=== PATIENT | female | born 1965 | race Caucasian/White ===

== ENCOUNTER 2016-08-30 08:36 | Inpatient (IN) | payer OTHER ==
--- NOTE | 2016-08-27 09:51 | HP ---
Admitting History and Physical - Primary Care Physician PCP: Omkar Hall - Admission Chief Complaint: right breast cancer History of Present Illness: Patient is a 50 yo female noted to have calcifications in the right UOQ on screening mammogram. Patient underwent a stereo on 07/10/2016 which was positive for DCIS ER and MS positive. An MRI was c/w known cancer (1.3 cm span Ca). Patient to undergo bilateral mastectomy with right snbx, possible andx and lymphoscintogram with reconstruction. History Source: Patient Limitations to Obtaining History: No Limitations - Past Surgical History Past Surgical History: Yes: Appendectomy (1979), Tubal Ligation (2002) Additional Past Surgical History: deviated septal repair 2013 - Smoking History Smoking history: Former smoker Home Medications - Allergies Allergies/Adverse Reactions: Allergies Allergy/AdvReac Type Severity Reaction Status Date / Time No Known Allergies Allergy Verified 08/27/16 09:53 - Home Medications Home Medications: Ambulatory Orders NK [No Known Home Medication] 08/27/16 Family Disease History - Family Disease History Family Disease History: CA: Sister (breast cancer at 43) Other Family History: maternal aunt x 4 (breast cancer with age range late 40s to 70s). maternal first cousin- breast cancer at 49. maternal GM-endometrial cancer at 75. paternal aunt-breast cancer 60s. father-prostate cancer. paternal GM-gastric cancer Review of Systems - Review of Systems Constitutional: reports: No Symptoms Eyes: reports: Blurred Vision Physical Examination Constitutional: Yes: Well Nourished Cardiovascular: Yes: WNL Respiratory: Yes: WNL Breast(s): Yes: Other (symmetrical, B cup breast diffusely nodular and dense without suspicious masses or adenopathy noted.) Problem List - Problems (1) Ductal carcinoma in situ (DCIS) of right breast Code(s): D05.11 - INTRADUCTAL CARCINOMA IN SITU OF RIGHT BREAST (2) Family history of breast cancer Code(s): Z80.3 - FAMILY HISTORY OF MALIGNANT NEOPLASM OF BREAST Assessment/Plan bilateral mastectomy, snbx, possible andx with lymphoscintogram and reconstruction
[2016-08-29 12:01] VITALS: BMI 21.2
[2016-08-30] MEDS ORDERED: ONDANSETRON 4 MG/2 ML VIAL IVPB PRN (10:31)
[2016-08-30] MEDS ORDERED: ACETAMINOPHEN 325 MG TABLET (FP) PO PRN (10:31)
[2016-08-30] MEDS ORDERED: ZOLPIDEM TARTRATE 5 MG TABLET PO PRN (10:31)
[2016-08-30] MEDS ORDERED: DEXAMETHASONE SOD PHOSPHATE/PF 10 MG/ML SDV ONE (10:39)
[2016-08-30] MEDS ORDERED: BUPIVACAINE HCL/PF 2.5 MG/ML - 30 ML VIAL IJ ONE (10:40)
[2016-08-30] MEDS ORDERED: MIDAZOLAM HCL 2 MG/2 ML SINGLE DOSE VIAL ONE (10:40)
[2016-08-30] MEDS ORDERED: DEXTROSE 5%-0.45% SALINE 1,000 ML IV SCH (10:45)
[2016-08-30] MEDS ORDERED: PROPOFOL 20 ML ONE (11:25)
[2016-08-30] MEDS ORDERED: LIDOCAINE HCL/PF 2% SDV 5ML VIAL ONE (11:26)
[2016-08-30] MEDS ORDERED: ROCURONIUM BROMIDE 50 MG/5 ML VIAL ONE ×2 (11:26→13:15)
[2016-08-30] MEDS ORDERED: DEXAMETHASONE SOD PHOSPHATE 4 MG/1 ML VIAL ONE (11:40)
[2016-08-30] MEDS ORDERED: ceFAZolin SODIUM 1 GM VIAL ONE ×2 (11:40→16:25)
[2016-08-30] MEDS ORDERED: ONDANSETRON 4 MG/2 ML VIAL ONE (11:40)
[2016-08-30] MEDS ORDERED: HYDROmorphone HCL/PF 1 MG/ML VIAL (FOR PYXIS CHARGING ONLY) ONE (14:25)
[2016-08-30] MEDS ORDERED: GLYCOPYRROLATE 0.2 MG/1 ML VIAL ONE (14:30)
[2016-08-30] MEDS ORDERED: NEOSTIGMINE METHYLSULFATE 0.5 MG/ML - 10 ML MDV ONE (14:31)
[2016-08-30] MEDS ORDERED: CEFAZOLIN 1 GM/D5W 50 ML IVPB SCH (15:00)
[2016-08-30] MEDS ORDERED: diazePAM 5 MG TABLET PO PRN (15:30)
[2016-08-30] MEDS ORDERED: ACETAMINOPHEN 1000 MG/100 ML VIAL (NON FORMULARY) IVPB ONE (15:30)
[2016-08-30] MEDS ORDERED: traMADol HCL 50 MG TABLET PO PRN (15:30)
[2016-08-30] MEDS ORDERED: LACTATED RINGERS SOLUTION 1,000 ML IV SCH (15:30)
[2016-08-30] MEDS ORDERED: PROMETHAZINE HCL 25 MG/1 ML VIAL IVPUSH PRN (15:30)
[2016-08-30] MEDS: HYDROmorphone HCL CARPU-JECT 1 MG/1 ML DISP.SYRIN IVPUSH PRN ×2 (15:35→15:55)
[2016-08-30] MEDS ORDERED: diazePAM 2 MG TABLET PO PRN (15:46)
[2016-08-30] MEDS ORDERED: ACETAMINOPHEN INJECTION 100 ML IVPB ONE (15:49)
[2016-08-30] MEDS: traMADol HCL 50 MG TABLET PO SCH ×2 (18:04→23:46)
[2016-08-30] MEDS: diazePAM 2 MG TABLET PO SCH ×2 (18:04→21:22)
[2016-08-30] MEDS: oxyCODONE HCL 5 MG TABLET PO PRN (19:26)
--- NOTE | 2016-08-30 19:27 | OP ---
DATE OF OPERATION: 08/30/2016 SURGEON: Brayan Tobias M.D. INFECTION PREVENTION PRACTITIONER SURGEON: Sabrina German PREOPERATIVE DIAGNOSIS: Bilateral acquired chest wall deformity status post bilateral mastectomy. This is a combined dictation with Brayan Hall M.D., and Jasmyne Nguyen M.D. POSTOPERATIVE DIAGNOSIS: Bilateral acquired chest wall deformity status post bilateral mastectomy. PROCEDURE: Bilateral implant and Alloderm reconstruction. INDICATION: The patient had mastectomies with tissue removed, 192 g of tissue from the right breast, and 225 g of tissue from the left breast. She had SPY intraoperative angiograms with good blood flow. She had Alloderm contour perforated medium sheaths placed bilaterally, and she had implants of Natrelle Inspira Cohesive breast implants style SCF 560 mL volume. She tolerated this procedure well. OPERATIVE PROCEDURE IN DETAIL: The patient was taken to the operating room. After induction of general anesthesia in the supine position, both arms were extended and padded. Venodyne boots were placed. The entire chest wall was painted with ChloraPrep solution over its entire extent, and sterile drapes were placed in the usual fashion. The markings, which had been made in the standing position preoperatively, were re-outlined with the patient's knowledge. Time-out procedure was performed. Attention was turned by Dr. Hall to the mastectomies. Bilateral inframammary incisions were made and Dr. Hall performed mastectomies. This will be dictated under separate cover. Upon completion of the mastectomies, the wounds were copiously irrigated and attention was turned to the right breast. A subpectoral dissection was begun on the right breast, superiorly from the second rib, medially to the sternal fibers, and down to the inframammary fold, elevating the pectoralis major muscle from its insertion. At this point, an 8.0 x 16.0 sheet of AlloDerm was brought into the field and sutured superiorly along the pectoralis major muscle after rehydration. This was carried along the lateral mammary fold and down the side of the breast reconstruction. At this point, a Natrelle Inspira Cohesive breast implant was chosen. The left breast tissue removed was 225 gm, and the right breast approximately 192 gm. This implant was placed and then sutured with 3-0 Vicryl suture continued along the inframammary fold, completely covering the implant itself. The exact same procedure was carried out symmetrically on the opposite breast, also placing a Natrelle Inspira Cohesive breast implant in the same subpectoral pocket. Good symmetry was seen in the sitting position. After the implants were in place, the patient was injected with 10 mL of Isocyanide green dye and the Spy imaging system was brought into the field. The skin flowed to the right and left breasts and the nipple areolar complex, and the entire skin flaps were evaluated and seen to be viable with good blood flow. Two Demarco-Copeland drains were brought out through separate stab wounds laterally. The Smart Infuser pump catheter was inserted medially and into the subpectoral position. Both wounds were closed symmetrically using 3-0 PDS suture on the deep tissue, 3-0 in a deep dermal fashion, and 4-0 in a subcuticular fashion. Both wounds were dressed sterilely with Mastisol and Steri-Strips with a surgical bra and a compression strap. The patient tolerated the procedure well. She was awakened, extubated and transferred to the recovery room in satisfactory condition. The yard assistant was present during the entire portion of the operation and closure. BRAYAN TOBIAS M.D. [id number]
[2016-08-30] MEDS ORDERED: GABAPENTIN 300 MG CAPSULE (FP) PO SCH (22:00)
[2016-08-30] MEDS: ACETAMINOPHEN 325 MG TABLET (FP) PO SCH (22:04)
[2016-08-31] MEDS: oxyCODONE HCL 5 MG TABLET PO PRN ×3 (02:42→20:05)
[2016-08-31] MEDS: ACETAMINOPHEN 325 MG TABLET (FP) PO SCH ×4 (04:26→21:41)
[2016-08-31] MEDS: traMADol HCL 50 MG TABLET PO SCH ×3 (06:02→17:46)
[2016-08-31] MEDS: diazePAM 2 MG TABLET PO SCH ×3 (06:03→21:41)
--- NOTE | 2016-08-31 09:04 | PN ---
Progress Note (short form) - Note Progress Note: Anesthesia post op note S/P Bilateral mastectomy with reconstruction. Pat seen and examined. VSS. No apparent post anesthesia complications. Pain well controlled. Signed off.
--- NOTE | 2016-08-31 09:32 | PN ---
Progress Note, Physician Chief Complaint: Bilateral nipple sparing total mastectomies with alloderm and implant reconstruction for right breast cancer History of Present Illness: patient is eating ,OOb to bathroom, pain managed, no nausea or vomiting - Current Medication List Current Medications: Active Medications Acetaminophen (Tylenol -) 650 mg PO Q6H [facility] Last Admin: 08/31/16 04:26 Dose: 650 mg Diazepam (Valium -) 2 mg PO TID [facility] Last Admin: 08/31/16 06:03 Dose: 2 mg Heparin Sodium (Porcine) (Heparin -) 5,000 unit SQ BID [facility] Hydromorphone HCl (Dilaudid Injection -) 0.5 mg IVPUSH [id number] PRN PRN Reason: PAIN Stop: 09/02/16 15:31 Last Admin: 08/30/16 15:55 Dose: 0.5 mg Lactated Ringer's (Lactated Ringers Solution) 1,000 mls @ 75 mls/hr IV ASDIR [facility] Oxycodone HCl (Roxicodone -) 5 mg PO Q4H PRN PRN Reason: PAIN Oxycodone HCl (Roxicodone -) 10 mg PO Q4H PRN PRN Reason: PAIN Last Admin: 08/31/16 02:42 Dose: 10 mg Tramadol HCl (Ultram -) 50 mg PO Q6HPO [facility] Last Admin: 08/31/16 06:02 Dose: 50 mg - Objective Vital Signs: Vital Signs Temperature 98.1 F 08/31/16 06:00 Pulse Rate 65 08/31/16 06:00 Respiratory Rate 18 08/31/16 06:00 Blood Pressure 112/77 08/31/16 06:00 O2 Sat by Pulse Oximetry (%) 98 08/31/16 07:00 Constitutional: Yes: Well Nourished, No Distress Breast(s): Yes: Other (Bilteral flaps viable moderate echymosis right >left, incision intact steristrips in place, clemente drains funtioning) Problem List - Problems (1) Ductal carcinoma in situ (DCIS) of right breast Code(s): D05.11 - INTRADUCTAL CARCINOMA IN SITU OF RIGHT BREAST Assessment/Plan continue IV antibiotics continue pain regimen OOB spirometry plan for discharge tomorrow
[2016-08-31] MEDS: HEPARIN NA (PORCINE) 5,000 UNITS/ML 1ML VIAL SQ SCH ×2 (10:07→21:42)
[2016-09-01] MEDS: traMADol HCL 50 MG TABLET PO SCH ×4 (00:15→12:00)
[2016-09-01] MEDS: ACETAMINOPHEN 325 MG TABLET (FP) PO SCH (03:51)
[2016-09-01] MEDS: oxyCODONE HCL 5 MG TABLET PO PRN ×3 (03:52→12:01)
[2016-09-01] MEDS: diazePAM 2 MG TABLET PO SCH (06:26)
[2016-09-01 06:33] VITALS: BP 93/59; PULSE 51; TEMP 97.8
--- NOTE | 2016-09-01 07:30 | OP ---
DATE OF OPERATION: 08/30/2016 PREOPERATIVE DIAGNOSIS: Ductal carcinoma in situ right breast. POSTOPERATIVE DIAGNOSIS: Ductal carcinoma in situ right breast. PROCEDURE: Bilateral nipple-sparing mastectomy, right sentinel node biopsy and direct implant reconstruction. SURGEONS: Che Amaral MD and Omkar Hall MD GRANT SPECIALIST: JOSÉ Ortiz ANESTHESIA: General. SPECIMENS: 1. Right axilla sentinel nodes. 2. Left breast. 3. Left retroareolar biopsy. 4. Right breast. 5. Right retroareolar biopsy. DRAINS: 4 No. 10 JPs. COMPLICATIONS: None. INDICATION FOR PROCEDURE: The patient is a 50-year-old woman whose screening mammogram showed right breast calcifications. These appeared suspicious on diagnostic imaging. Stereotactic biopsy showed DCIS. The patient has a family history of breast cancer in 4 maternal aunts and her sister. She opted for bilateral mastectomy with immediate reconstruction. DESCRIPTION OF PROCEDURE: The patient was identified in the holding area. Informed consent was obtained. She was taken to the operating room and placed on the operating room table in the supine position. Sequential compression devices were placed on both legs. She received antibiotics prior to surgery. She was intubated. The breasts and axilla were prepped and draped in the usual fashion. The patient had already undergone lymphoscintigraphy for identification of the sentinel node. A time-out was performed. The sentinel node biopsy was performed first. An incision was made in the axilla directly over an area of high counts identified by the probe. Dissection in this region revealed 3 small nodes, which were removed by grasping the nodes with a clamp and them from the axillary fat. All 3 exhibited high counts and were negative for metastasis on frozen section. The mastectomies were then performed simultaneously. They were performed in a similar fashion. An inframammary incision was made with a scalpel. The incision was deepened using the electrocautery until the breast parenchyma was exposed. The electrocautery was then used to raise skin flaps medially toward the sternal border, laterally towards the axilla, and then superiorly towards the clavicle. Care was taken not to damage the overlying skin. The tissue under the nipple was divided taking care to preserve the vascular supply. The breast was removed along with the pectoralis major fascia. The specimen was labeled with a short stitch at the superior margin and a long stitch at the lateral margin. A specimen radiograph of the right breast identified the clip placed during the previous biopsy. The left mastectomy was performed in a similar fashion. The breast was labeled with silk sutures but no specimen radiograph was performed. Both specimens were placed in formalin and sent to Pathology for further evaluation. Retroareolar biopsies were taken and sent to Pathology for frozen section. Both showed no evidence of disease. The operative field was irrigated and inspected for hemostasis. Once hemostasis was satisfactory, Dr. Tobias continued with the reconstruction and closure which he will dictate. All sponge, lap and instrument counts were correct and the patient remained stable throughout the procedure. At the end of the procedure she was taken to the PACU in satisfactory condition. CHE AMARAL M.D. [id number] MTDD
[2016-09-01] MEDS: HEPARIN NA (PORCINE) 5,000 UNITS/ML 1ML VIAL SQ SCH (10:02)
--- NOTE | 2016-09-01 10:42 | DS ---
Physical Examination Vital Signs: Vital Signs Temperature 97.8 F 09/01/16 06:30 Pulse Rate 51 L 09/01/16 06:30 Respiratory Rate 18 09/01/16 06:30 Blood Pressure 93/59 09/01/16 06:30 O2 Sat by Pulse Oximetry (%) 97 09/01/16 06:30 Constitutional: Yes: Well Nourished, No Distress Wound/Incision: Yes: Dressing Dry and Intact (Skin flaps and nipples warm and viable. Minimal bilateral ecchymosis. JPs functioning, with serosanguineous effluent.) Discharge Summary Reason For Visit: RIGHT BREAST CA Current Active Problems Ductal carcinoma in situ (DCIS) of right breast (Acute) Family history of breast cancer (Acute) Condition: Good - Instructions Diet, Activity, Other Instructions: Post Operative Instructions - [facility] We hope your recovery will be uneventful. For those of you who have been given general anesthesia, there is a possibility you might have some lightheadedness and possibly nausea. It is important that each patient, especially those who have had general anesthesia, follow these instructions, please: 1. Do NOT operate a motor vehicle for 24 hours. 2. Do NOT drink any alcoholic beverages for 24 hours. 3. Do NOT take any sedatives, narcotics, or tranquilizers for 24 hours unless specifically ordered by your surgeon. 4. Do NOT undertake any strenuous exercise or outside activity for 24 hours unless specifically permitted by your surgeon. 5. Eat light foods that are easy to digest. If you have any problems with nausea and vomiting, lie down and rest. If it continues, call your surgeon. 6. Call your surgeon AT ONCE if you have problems with: a. Bleeding b. Urinating c. Excessive pain or drainage d. Numbness If any problems occur, call your physician first. If you cannot reach him/her, call the Ambulatory Surgery Unit at [phone], or the Emergency Room at [phone]. Follow up with Drs. Hall / Jose in 7 days. Medication: Vicodin E-S OR Percocet 1-2 tablets every 4-6 hrs as needed for 5-7 days. Wound Care: Keep wound dry and clean for 48 hours. You may remove the dressing after 48 hours and may shower. Keep steri-strips in place until follow-up appointment No heavy lifting or strenuous activities. BREAST SURGERY INSTRUCTIONS Omkar Hall M.D., FACS Chente Garcia M.D., FACS Jasmyne Nguyen M.D., FACS 1. Please call the office at to make a follow up appointment with your surgeon. This number can be also used for any urgent issues you may have. 2. Call us immediately if any of the following occur: *Bleeding from the incision or drain site (a small amount is normal) *Fever or chills *Redness and worsening tenderness around the surgical site *Drainage of pus or fluid from the incision or drain site 3. You may change the surgical dressing two (2) days after your surgery, and may shower then. If you have drains, you may shower after they have been removed, until then take a sponge bath. 4. It is normal for there to be some bruising and tenderness around the surgical site, and the breast may also be firm in this area. 5. Please wear a comfortable bra (sports or surgical bra) all day and all night until your first follow-up visit with your surgeon. 6. The pain medicine you have been prescribed may make you constipated; make sure you drink plenty of water. You may use an over the counter laxative if needed. 7. You may resume your normal diet after surgery, although you may want to avoid rich foods for the first twenty-four (24) hours after surgery. Alcoholic drinks should be avoided while taking the prescribed pain medicine. 8. You may resume normal activities as long as there is no discomfort, but do not do upper body exercises until after your follow-up appointment. Do not lift anything heavier than a large phone book. You may resume driving once you have stopped taking the prescribed pain medicine and feel comfortable doing arm movements.WEAR JOHN, NOSHOWER,EMPTY AND RECORD [place] OUTPUT TWICE DAILY Referrals: Patrick Tobias MD [Staff Physician] - Omkar Hall MD [Staff Physician] - Disposition: HOME - Home Medications Comprehensive Discharge Medication List: Ambulatory Orders Multivitamins [Multivit ([facility] Formulary)] 1 tab PO DAILY 08/29/16 Cefadroxil 500 mg PO BID #20 capsule 08/31/16 Oxycodone HCl/Acetaminophen [Percocet 5-325 mg Tablet] 1 - 2 tab PO Q6H PRN #30 tab MDD 6 08/31/16
--- NOTE | 2016-09-05 16:14 | PATH ---
Surgical Pathology Report Patient Name: DIOGENES ROUSE Med. Rec. #: [id number] /Age/Gender: 1965 (Age: 50) / F Account: [id number] [facility] Taken: 08/30/2016 Received: 08/30/2016 Reported: 09/05/2016 Physicians: Omkar Hall M.D. Specimen(s) Received A: RIGHT AXILLARY SENTINEL NODE. FS#1 B: LEFT BREAST RETROAREOLAR BIOPSY. FS#2 C: RIGHT BREAST RETROAREOLAR BIOPSY. FS#3 D: LEFT MASTECTOMY E: RIGHT MASTECTOMY Clinical History Non-palpable lesion Intraoperative Consult Diagnosis A. Right axilla sentinel lymph node, touch preps and frozen sections: Three lymph nodes, no carcinoma identified (0/3). B. Right breast retroareolar biopsy, frozen section: No carcinoma identified. C. Left breast retroareolar biopsy, frozen section: No carcinoma identified. Dr. Ty Jerry, 08/30/16. Final Diagnosis A. AXILLARY SENTINEL LYMPH NODES, RIGHT, EXCISION (FS): THREE LYMPH NODES, NEGATIVE FOR METASTATIC CARCINOMA (0/3). B. RETROAREOLA, LEFT BREAST, BIOPSY (FS): BENIGN BREAST TISSUE; NEGATIVE FOR MALIGNANCY. C. RETROAREOLA, RIGHT BREAST, BIOPSY (FS): BENIGN BREAST TISSUE; NEGATIVE FOR MALIGNANCY. D. BREAST, LEFT, NIPPLE-SPARING MASTECTOMY: FOCAL ATYPICAL DUCTAL HYPERPLASIA (ADH) ARISING IN A BACKGROUND OF PROLIFERATIVE FIBROCYSTIC CHANGES INCLUDING MICROCYSTS AND USUAL DUCTAL HYPERPLASIA (UDH). E. BREAST, RIGHT, NIPPLE -SPARING MASTECTOMY: DUCTAL CARCINOMA IN SITU (DCIS), SOLID AND CRIBRIFORM TYPE, INTERMEDIATE NUCLEAR GRADE WITH ASSOCIATED CALCIFICATIONS, PRESENT IN TWO OF TWENTY-TWO SLIDES (2/22). (SEE NOTE) DCIS IS PRESENT IN ASSOCIATION WITH PRIOR BIOPSY SITE CHANGES IN THE LOWER OUTER QUADRANT (LOQ), WELL FOCALLY IN THE UPPER OUTER QUADRANT (UOQ). THE LARGEST FOCUS OF DCIS SPANS 3 MM IN GREATEST DIMENSION, MICROSCOPICALLY. SURGICAL MARGINS ARE UNINVOLVED BY DCIS; DCIS IS AT 2 MM FROM THE CLOSEST (ANTERIOR) MARGIN. REMAINING BREAST TISSUE SHOWS PROLIFERATIVE FIBROCYSTIC CHANGES INCLUDING MICROCYSTS, USUAL DUCTAL HYPERPLASIA (UDH) AND SECRETORY CHANGES. PATHOLOGIC STAGE (pTNM): pTis (DCIS) pN0. SEE ALSO DCIS CASE SUMMARY BELOW. Note: The foci of DCIS are positive for E-Cadherin (performed at [facility]), which supports ductal phenotype. Comments DCIS of Breast: Surgical Pathology Cancer Case Summary Based on AJCC/UICC TNM, 7th edition Procedure _X_ Other: Nipple-sparing mastectomy Lymph Node Sampling _X_ [place] lymph node(s) Specimen Laterality _X_ Right Estimated size (extent) of DCIS (greatest dimension using gross and microscopic evaluation): at least 3 mm and: Number of blocks with DCIS: 2 Number of blocks examined: 22 Nuclear Grade _X_ Grade II (intermediate) Necrosis _X_ Present, focal (small foci or single cell necrosis) Microcalcifications _X_ Present in both DCIS and non-neoplastic tissue Margins _X_ Margin(s) uninvolved by DCIS Distance from closest margin: 2 mm (anterior) Lymph Nodes Total number of nodes examined (sentinel and nonsentinel): 3 Number of sentinel nodes examined: 3 Lymph Node Involvement Number of lymph nodes with macrometastases (>2 mm): 0 Number of lymph nodes with micrometastases (>0.2 mm to 2 mm and/or >200 cells): 0 Number of lymph nodes with isolated tumor cells (=0.2 mm and =200 cells): 0 Pathologic Staging (pTNM): pTis (DCIS) pN0 Biomarker Studies Results of ER and MD studies performed on block E16 at [facility] are as follows: ER (clone [id number] mouse monoclonal antibody by [employer]) : >90 % nuclear staining with strong intensity (Positive). MD (clone16 mouse monoclonal antibody by [employer]):~30% nuclear staining with moderate intensity (Positive). Positive and negative controls (internal if applicable) show appropriate results. Formalin fixation and cold ischemic times are within current ASCO/CAP recommendations for ER, MD and Her2 testing. Electronically Signed Vicky Bassett M.D. Gross Description A. Received fresh, labeled "right axillary sentinel lymph nodes" and three lee-pink rubbery lymph nodes ranging from 0.5-1.2 cm in greatest dimension. The lymph nodes are bisected, touch preps are made from the two larger lymph nodes, and each node submitted for frozen section. The frozen section residues are submitted in three cassettes. B. Received fresh, labeled "right breast retroareolar biopsy" is a 1.8 x 1.2 x 0.2 cm fragment of lee-pink fibrofatty tissue. The specimen is entirely submitted for frozen section. The frozen section residue is submitted in one cassette. C. Received fresh, labeled "left breast retroareolar biopsy" is a 0.8 x 0.4 x 0.2 cm fragment of lee fibrofatty tissue. The specimen is entirely submitted for frozen section. The frozen section residue is submitted one cassette. D. Received in formalin, labeled "left mastectomy," is a 174 gram, 13.5 x 10.5 x 3.6 cm. left mastectomy specimen with a short suture marking the superior aspect and a long suture marking the lateral aspect of the specimen, per the surgeon. There is no skin or nipple present. The deep margin is inked black and the anterior soft tissue margin is inked blue. The specimen is serially sectioned from medial to lateral. Sectioning reveals multiple foci of white fibrous tissue. Fixer Supervisor sections are submitted in 12 cassettes as follows: 1-2-upper outer quadrant; 3-6-lower outer quadrant; 7-8-upper inner quadrant; 9-10-lower inner quadrant; 11-anterior soft tissue margin; 12-deep margin. Time to formalin fixation: 60 minutes Total formalin fixation time: Approximately 28 hours. E. Received in formalin, labeled "right mastectomy," is a 239 gram, 14.0 x 13.3 x 2.8 cm. right mastectomy specimen with a short suture marking the superior aspect and a long suture marking the lateral aspect of the specimen, per the surgeon. There is no skin or nipple present. The deep margin is inked black and the anterior soft tissue margin is inked blue. The specimen is serially sectioned from lateral to medial. Sectioning reveals focally firm fibrous tissue in the upper outer quadrant (UOQ), abutting the anterior soft tissue margin. A focal area of hemorrhage and induration with surrounding dense fibrous tissue, consistent with prior biopsy site, is present in the lower outer quadrant (LOQ). The remaining breast parenchyma displays foci of white fibrous tissue. Fixer Supervisor sections are submitted in 22 cassettes as follows: 1-8-UOQ focally firm fibrous tissue; 9-16-LOQ with prior biopsy site; 17-18-upper inner quadrant (UIQ); 19-20-lower inner quadrant (LIQ); 21-anterior soft tissue margin; 22-deep margin. Time to formalin fixation: 20 minutes Total formalin fixation time: Approximately 28 hours. AF/08/30/2016 final/08/30/2016
== END 2016-09-01 12:04 | disposition home or self-care (01) | DRG 581 ==
LOC: FM/S 08:49
PROVIDERS: ADMIT Surgery Surgical Oncology; ATTEND Surgery Surgical Oncology
PROC: 0HTV0ZZ Resection of Bilateral Breast, Open Approach (ICD-10-PCS; principal; 2016-08-30 11:57)
PROC: 07B50ZX Excision of Right Axillary Lymphatic, Open Approach, Diagnostic (ICD-10-PCS; 2016-08-30 11:57)
PROC: 0HRV0JZ Replacement of Bilateral Breast with Synthetic Substitute, Open Approach (ICD-10-PCS; 2016-08-30 11:57)
DX: D05.11 Intraductal carcinoma in situ of right breast (principal); Z80.3 Family history of malignant neoplasm of breast; Z40.01 Encounter for prophylactic removal of breast; M95.4 Acquired deformity of chest and rib; Z87.891 Personal history of nicotine dependence
CPT/HCPCS: 78195-TC; 84703; 88307-TC; 88331-TC; 94010; 94760; A9541; J1644